=== PATIENT | male | born 1955 | race Hispanic/Latino ===

== ENCOUNTER 2021-03-25 11:39 | Inpatient (IN) | payer OTHER ==
[2021-03-20 11:09] LABS: BASOPHILS % (AUTO) 1.2 % (0.0-5.0); EOSINOPHILS % (AUTO) 1.3 % (0.0-8.0); HEMATOCRIT 41.1 % (42-54); LYMPHOCYTES % (AUTO) 14.4 % (21.0-51.0); MEAN CORPUSCULAR HEMOGLOBIN 30.2 pg (27.0-33.0); MEAN CORPUSCULAR HGB CONC 33.1 g/dL (32.0-36.0); MEAN CORPUSCULAR VOLUME 91.1 fL (79-99); MONOCYTES % (AUTO) 8.9 % (3.0-13.0); NEUTROPHILS % (AUTO) 73.3 % (40.0-77.0); PLATELET COUNT (AUTO) 305 K/uL (130-400); RED BLOOD CELL COUNT(AUTO) 4.51 MIL/uL (4.50-6.20); RED CELL DISTRIBUTION WIDTH 12.7 % (11.0-15.5); WHITE BLOOD COUNT (AUTO) 8.2 K/uL (4.8-10.8)
[2021-03-20 11:20] LABS: CREATININE 0.9 mg/dL (0.5-1.5); POTASSIUM 3.9 mmol/L (3.5-5.1)
[2021-03-22 10:11] VITALS: BP 158/77
[2021-03-25] VITALS (26 sets, daily range): BP systolic 135–159; BP diastolic 70–89
[~2021-03-25] VITALS: Ht 170.2 cm; Wt 96.6 kg
[~2021-03-25 11:39] MED LIST: ATOR20TA65 PO; BUSP10TA3 PO; INSU100V37 SQ; LOSA100T58 PO; METF-446 PO; METO-391 PO
[2021-03-25] MEDS ORDERED: 0.9%NACL 1000ML 1,000 ML IV ONE (11:55)
[2021-03-25] MEDS: CEFTRIAXONE 1G VIAL IVP SCH ×2 (12:33→14:15)
[2021-03-25] MEDS ORDERED: PROPOFOL 10 MG/ML 20ML VIAL IV ONE (14:06)
[2021-03-25] MEDS ORDERED: LIDOCAINE PF 100MG/5ML (2%) SYRINGE 5ML ONE (14:06)
[2021-03-25] MEDS ORDERED: FENTANYL CITRATE PF 50 MCG/1 ML 2ML VIAL ONE (14:06)
[2021-03-25] MEDS ORDERED: ROCURONIUM 10MG/1ML SYR 10 MG/ML ML ONE (14:22)
[2021-03-25] MEDS ORDERED: ALBUTEROL INHALER 90MCG/INH IH ONE (14:35)
[2021-03-25] MEDS ORDERED: DEXAMETHASONE SOD PHOSPHATE 10MG/ML 1ML VIAL ONE (14:38)
[2021-03-25] MEDS ORDERED: EPHEDRINE SULFATE 50 MG/ML AMPULE ONE (14:57)
[2021-03-25] MEDS ORDERED: OPIUM/BELLADONNA ALKALOIDS 1 EACH SUPP.RECT RC ONE (15:12)
[2021-03-25] MEDS ORDERED: GENTAMICIN 80 MG/NS 100 ML PB 100 ML IV ONE (15:14)
[2021-03-25] MEDS ORDERED: ONDANSETRON 4MG INJ ONE (15:22)
[2021-03-25] MEDS ORDERED: NEOSTIGMINE 5MG/5ML SYR IV ONE (15:22)
[2021-03-25] MEDS ORDERED: GLYCOPYRROLATE 1 MG/5 ML SYRINGE ONE (15:22)
[2021-03-25] MEDS ORDERED: IPRATROPIUM/ALBUTEROL SULFATE 3 ML SOLUTION IH ONE (15:41)
[2021-03-25] MEDS ORDERED: KETOROLAC 15MG/ML VIAL (15MG/ML) IM PRN (19:00)
[2021-03-25] MEDS ORDERED: ACETAMINOPHEN 325 MG TAB PO PRN ×2 (19:00)
[2021-03-25] MEDS ORDERED: ONDANSETRON 4MG INJ IV PRN (19:00)
[2021-03-25] MEDS: FAMOTIDINE 20MG VIAL IV SCH (21:51)
[2021-03-25] MEDS: ATORVASTATIN 20 MG TABLET PO SCH (21:52)
[2021-03-26] VITALS (8 sets, daily range): BP systolic 115–138; BP diastolic 57–80
[2021-03-26] MEDS ORDERED: IPRATROPIUM 0.5 MG/2.5 ML INH IH SCH
[2021-03-26 04:21] LABS: HEMATOCRIT 39.3 % (42-54); MEAN CORPUSCULAR HEMOGLOBIN 30.5 pg (27.0-33.0); MEAN CORPUSCULAR HGB CONC 33.3 g/dL (32.0-36.0); MEAN CORPUSCULAR VOLUME 91.4 fL (79-99); RED BLOOD CELL COUNT(AUTO) 4.3 MIL/uL (4.50-6.20); RED CELL DISTRIBUTION WIDTH 12.7 % (11.0-15.5); WHITE BLOOD COUNT (AUTO) 19.4 K/uL (4.8-10.8)
[2021-03-26 04:46] LABS: ALBUMIN 3.3 g/dL (3.5-5.0); BILIRUBIN,TOTAL 0.5 mg/dL (0.2-1.0); CREATININE 1.2 mg/dL (0.5-1.5); POTASSIUM 4.6 mmol/L (3.5-5.1); TOTAL PROTEIN, SERUM 6.6 g/dL (6.0-8.3)
[2021-03-26] MEDS ORDERED: INSULIN HUMULIN R 100 UNIT/ML 3ML SQ SCH (07:30)
[2021-03-26] MEDS: LOSARTAN 100 MG TABLET PO SCH (09:16)
[2021-03-26] MEDS: FAMOTIDINE 20MG VIAL IV SCH ×2 (09:16→20:19)
[2021-03-26] MEDS: METFORMIN HCL 500 MG TABLET PO SCH ×2 (09:16→16:23)
[2021-03-26] MEDS: METOPROLOL SUCCINATE 50 MG TAB.SR.24H PO SCH (09:16)
[2021-03-26] MEDS ORDERED: CEFTRIAXONE 1G VIAL IVP SCH (10:30)
[2021-03-26] MEDS: PHENAZOPYRIDINE HCL 200 MG TABLET PO SCH ×2 (11:00→20:18)
[2021-03-26] MEDS ORDERED: AMOX/CLAV 875/125MG TAB PO SCH (11:00)
[2021-03-26] MEDS ORDERED: ACETAMINOPHEN WITH CODEINE 1 TAB TAB PO PRN (11:00)
[2021-03-26] MEDS ORDERED: INSULIN HUMULIN R 100 UNIT/ML 3ML ONE (12:09)
[2021-03-26] MEDS: INSULIN HUMULIN R 100 UNIT/ML 3ML SQ SCH ×3 (12:18→21:00)
[2021-03-26] MEDS ORDERED: DEXTROSE 50%-WATER 50 ML DISP.SYRIN IV PRN (12:30)
[2021-03-26] MEDS ORDERED: GLUCAGON 1MG KIT 1 MG ML IM PRN (12:30)
[2021-03-26] MEDS ORDERED: ZOSYN 3.375GM+NS 50ML 3.38 GM in 0.9%NACL 50ML 50 ML IV SCH (15:30)
[2021-03-26] MEDS: ZOSYN 3.375GM +NS 50ML IV SCH (16:23)
[2021-03-26] MEDS: ATORVASTATIN 20 MG TABLET PO SCH (20:18)
[2021-03-27] VITALS: BP 113/66
[2021-03-27] MEDS: ZOSYN 3.375GM +NS 50ML IV SCH ×2 (01:28→08:37)
[2021-03-27 04:00] VITALS: BP 117/73
[2021-03-27 04:40] LABS: HEMATOCRIT 39.4 % (42-54); MEAN CORPUSCULAR HEMOGLOBIN 30.5 pg (27.0-33.0); MEAN CORPUSCULAR VOLUME 92.5 fL (79-99); RED BLOOD CELL COUNT(AUTO) 4.26 MIL/uL (4.50-6.20); RED CELL DISTRIBUTION WIDTH 13.1 % (11.0-15.5); WHITE BLOOD COUNT (AUTO) 12.5 K/uL (4.8-10.8)
[2021-03-27 04:59] LABS: CREATININE 1.1 mg/dL (0.5-1.5); POTASSIUM 4.2 mmol/L (3.5-5.1)
[2021-03-27] MEDS: INSULIN HUMULIN R 100 UNIT/ML 3ML SQ SCH ×2 (06:51→13:52)
[2021-03-27 07:48] VITALS: BP 138/76
[2021-03-27 08:00] VITALS: BP 138/76
[2021-03-27] MEDS: METFORMIN HCL 500 MG TABLET PO SCH (08:36)
[2021-03-27] MEDS: METOPROLOL SUCCINATE 50 MG TAB.SR.24H PO SCH (08:37)
[2021-03-27] MEDS: FAMOTIDINE 20MG VIAL IV SCH (08:37)
[2021-03-27] MEDS: LOSARTAN 100 MG TABLET PO SCH (08:37)
[2021-03-27] MEDS: PHENAZOPYRIDINE HCL 200 MG TABLET PO SCH (08:37)
[2021-03-27 12:00] VITALS: BP 149/75
== END 2021-03-27 15:15 | disposition home or self-care (01) | DRG 665 ==
LOC: DAH 11:39 → OBSVTOIN 11:40 → DAH 11:40 → 3CH 11:40
PROVIDERS: ADMIT Internal Medicine; ATTEND Internal Medicine
PROC: 0V508ZZ Destruction of Prostate, Via Natural or Artificial Opening Endoscopic (ICD-10-PCS; principal; 2021-03-25 14:25)
PROC: 0TCB8ZZ Extirpation of Matter from Bladder, Via Natural or Artificial Opening Endoscopic (ICD-10-PCS; 2021-03-25 14:25)
DX: N21.0 Calculus in bladder (principal); J96.01 Acute respiratory failure with hypoxia; J98.11 Atelectasis; N39.0 Urinary tract infection, site not specified; N40.1 Benign prostatic hyperplasia with lower urinary tract symptoms; E78.5 Hyperlipidemia, unspecified; I10 Essential (primary) hypertension; I48.91 Unspecified atrial fibrillation; Z20.822 Contact with and (suspected) exposure to COVID-19; E66.01 Morbid (severe) obesity due to excess calories; E11.9 Type 2 diabetes mellitus without complications; B96.20 Unspecified Escherichia coli [E. coli] as the cause of diseases classified elsewhere; D72.829 Elevated white blood cell count, unspecified; Z68.33 Body mass index [BMI] 33.0-33.9, adult; Z80.42 Family history of malignant neoplasm of prostate; Z83.3 Family history of diabetes mellitus; Z82.49 Family history of ischemic heart disease and other diseases of the circulatory system
CPT/HCPCS: 36415; 71045; 80048; 80053; 82360; 82948; 85025; 85027; 87635; 93005; 94640; A4354; C9803; G0378; J0696; J1100; J1580; J1815; J1885; J2001; J2405; J2543; J2704; J2710; J3010; J3490; J7030

== ENCOUNTER → 2023-04-24 | Outpatient (CLI) | payer OTHER ==
[~2023-04-24] MED LIST changes: -LOSA100T58 PO; +LOSA100T59 PO
== END | disposition home or self-care (01) ==
LOC: SHCH 09:08
PROVIDERS: ATTEND Internal Medicine Cardiovascular Disease
DX: I35.1 Nonrheumatic aortic (valve) insufficiency (principal); I48.0 Paroxysmal atrial fibrillation; I10 Essential (primary) hypertension; E78.5 Hyperlipidemia, unspecified; E11.9 Type 2 diabetes mellitus without complications
CPT/HCPCS: 93306